=== PATIENT | female | born 1970 | race Caucasian/White ===

== ENCOUNTER 2018-03-23 10:12 | Emergency (ER) | payer OTHER ==
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
--- NOTE | 2018-03-23 11:31 | RADIOLOGY REPORT (SQ) ---
EXAM DESCRIPTION: CT CERVICAL SPINE WITHOUT COMPLETED DATE/TIME: 03/23/2018 10:50 am REASON FOR STUDY: trauma COMPARISON: None. TECHNIQUE: Axial images acquired through the cervical spine without intravenous contrast. Images re viewed with lung, soft tissue and bone windows. Reconstructed coronal and sagittal MPR images review ed. Images stored on PACS. All CT scanners at this facility use dose modulation, iterative reconstruction, and/or weight based d osing when appropriate to reduce radiation dose to as low as reasonably achievable (ALARA). [facility]: Dose Right [facility]: CareDose [facility]: Dose Right [facility]: Teradose 4D [facility]: [employer] RADIATION DOSE: CT Rad equipment meets quality standard of care and radiation dose reduction techniq ues were employed. CTDIvol: 20.6 mGy. DLP: 408 mGy-cm. mGy. LIMITATIONS: None. FINDINGS: ALIGNMENT: Anatomic. MINERALIZATION: Normal. VERTEBRAL BODIES: No fractures or dislocation. DISCS: Multilevel disc space narrowing with osteophytes. FACETS, LATERAL MASSES, POSTERIOR ELEMENTS: Ossification of the posterior longitudinal ligament. Fac et arthropathy. No fractures. No dislocation. No acute findings. HARDWARE: None in the spine. VISUALIZED RIBS: No fractures. LUNG APICES AND SOFT TISSUES: No significant or acute findings. OTHER: No other significant finding. IMPRESSION: CHRONIC DEGENERATIVE CHANGES. NO ACUTE FINDINGS. TECHNICAL DOCUMENTATION: JOB ID: [id number] Quality ID # [id number]: Final reports with documentation of one or more dose reduction techniques (e.g., Au tomated exposure control, adjustment of the mA and/or kV according to patient size, use of iterative reconstruction technique) 2010 [employer]- All Rights Reserved Reading location - IP/workstation name: [email or web address]
[2018-03-23 11:45] VITALS: BP 127/78
== END 2018-03-23 11:51 | disposition home or self-care (01) ==
LOC: ER 10:12
DX: S16.1XXA Strain of muscle, fascia and tendon at neck level, initial encounter (principal); R20.0 Anesthesia of skin; M54.2 Cervicalgia; M54.6 Pain in thoracic spine; M79.641 Pain in right hand; M79.642 Pain in left hand; V87.7XXA Person injured in collision between other specified motor vehicles (traffic), initial encounter; F17.200 Nicotine dependence, unspecified, uncomplicated
CPT/HCPCS: 72125; 99284

== ENCOUNTER → 2018-05-25 | Outpatient (CLI) | payer OTHER ==
--- NOTE | 2018-05-25 09:34 | RADIOLOGY REPORT (SQ) ---
EXAM DESCRIPTION: CHEST PA/LATERAL COMPLETED DATE/TIME: 05/25/2018 9:14 am REASON FOR STUDY: PRE-OP COMPARISON: None. EXAM PARAMETERS: NUMBER OF VIEWS: two views TECHNIQUE: Digital Frontal and Lateral radiographic views of the chest acquired. RADIATION DOSE: NA LIMITATIONS: none FINDINGS: LUNGS AND PLEURA: Minimal linear bandlike airspace disease in the lingula, likely scarring . No fluffy alveolar infiltrates worrisome for acute pulmonary edema or pneumonia. No pleural effusion . No pneumothorax. MEDIASTINUM AND HILAR STRUCTURES: No masses or contour abnormalities. HEART AND VASCULAR STRUCTURES: Heart normal size. No evidence for failure. BONES: No acute findings. HARDWARE: None in the chest. OTHER: No other significant finding. IMPRESSION: Minimal lingular scarring TECHNICAL DOCUMENTATION: JOB ID: [id number] [employer]- All Rights Reserved Reading location - IP/workstation name: [email or web address]
[2018-05-25 09:38] LABS: ABSOLUTE LYMPHOCYTES (AUTO) 1.8 10^3/uL (0.5-4.7); ABSOLUTE MONOCYTES (AUTO) 0.4 10^3/uL (0.1-1.4); ABSOLUTE NEUT (AUTO) 3.7 10^3/uL (1.7-8.2); BASOPHILS % (AUTO) 0.4 % (0-2); EOSINOPHILS % (AUTO) 0.7 % (0-6); HEMATOCRIT 41.9 % (36.0-47.0); HEMOGLOBIN 14.3 g/dL (12.0-15.5); LYMPHOCYTES % (AUTO) 30.4 % (13-45); MEAN CORPUSCULAR HGB CONC 34.2 g/dL (32.0-36.0); MEAN CORPUSCULAR VOLUME 88 fl (80-97); MONOCYTES % (AUTO) 6.1 % (3-13); PLATELET COUNT 297 10^3/uL (150-450); RED BLOOD COUNT 4.78 10^6/uL (3.72-5.28); RED CELL DISTRIBUTION WIDTH 13.2 % (11.5-14.0); SEGMENTED NEUTROPHILS % (AUTO) 62.4 % (42-78); TOTAL CELLS COUNTED % (AUTO) 100 %; WHITE BLOOD COUNT 5.9 10^3/uL (4.0-10.5)
[2018-05-25 10:08] LABS: ANION GAP 8 (5-19); BLOOD UREA NITROGEN 15 mg/dL (7-20); CALCIUM 9.2 mg/dL (8.4-10.2); CARBON DIOXIDE 25 mmol/L (22-30); CHLORIDE 105 mmol/L (98-107); GLUCOSE 105 mg/dL (75-110); POTASSIUM 5.5 mmol/L (3.6-5.0); SODIUM 138.4 mmol/L (137-145)
--- NOTE | 2018-05-25 12:57 | EKG REPORT ---
SEVERITY:- NORMAL ECG - SINUS RHYTHM : Confirmed by: David Lyons MD 25-May-2018 12:56:24
== END ==
LOC: OD 08:20
PROVIDERS: ATTEND Orthopaedic Surgery
DX: Z01.810 Encounter for preprocedural cardiovascular examination (principal); Z01.812 Encounter for preprocedural laboratory examination; Z01.818 Encounter for other preprocedural examination
CPT/HCPCS: 36415; 71046; 80048; 85025; 87070; 93005; 93010

== ENCOUNTER → 2019-10-04 | Outpatient (CLI) | payer OTHER ==
--- NOTE | 2019-10-04 17:09 | RADIOLOGY REPORT (SQ) ---
EXAM DESCRIPTION: KUB IMAGES COMPLETED DATE/TIME: 10/04/2019 4:58 pm REASON FOR STUDY: LOWER ABD PAIN R10.30 LOWER ABDOMINAL PAIN, UNSPECIFIED COMPARISON: None. NUMBER OF VIEWS: One view. TECHNIQUE: Supine radiographic image of the abdomen acquired. LIMITATIONS: None. FINDINGS: BOWEL GAS PATTERN: Normal bowel gas pattern. No dilated loops. CALCIFICATIONS: No suspicious calcifications. SOFT TISSUES: No gross mass or suggestion of organomegaly. HARDWARE: None in the abdomen. BONES: No acute fracture. Small bone island distal right iliac bone. Mild degenerative changes and slight levoconvex scoliosis of the lumbar spine. OTHER: IUD within the midline pelvic region. Multiple calcified phleboliths in the pelvic region. IMPRESSION: 1. NO RADIOGRAPHIC EVIDENCE FOR ACUTE ABDOMINAL DISEASE. TECHNICAL DOCUMENTATION: JOB ID: [id number] 2010 [employer]- All Rights Reserved Reading location - IP/workstation name: [email or web address]
[2019-10-04 17:23] LABS: ABSOLUTE EOSINOPHILS # (AUTO) 0.1 10^3/uL (0.0-0.6); ABSOLUTE LYMPHOCYTES (AUTO) 2.4 10^3/uL (0.5-4.7); ABSOLUTE MONOCYTES (AUTO) 0.4 10^3/uL (0.1-1.4); ABSOLUTE NEUT (AUTO) 5.4 10^3/uL (1.7-8.2); BASOPHILS % (AUTO) 0.2 % (0-2); EOSINOPHILS % (AUTO) 1.4 % (0-6); HEMATOCRIT 40.3 % (36.0-47.0); HEMOGLOBIN 14.1 g/dL (12.0-15.5); MEAN CORPUSCULAR HEMOGLOBIN 30.9 pg (27.0-33.4); MEAN CORPUSCULAR VOLUME 88 fl (80-97); MONOCYTES % (AUTO) 4.9 % (3-13); PLATELET COUNT 260 10^3/uL (150-450); RED BLOOD COUNT 4.56 10^6/uL (3.72-5.28); RED CELL DISTRIBUTION WIDTH 12.6 % (11.5-14.0); SEGMENTED NEUTROPHILS % (AUTO) 64.5 % (42-78); TOTAL CELLS COUNTED % (AUTO) 100 %; WHITE BLOOD COUNT 8.4 10^3/uL (4.0-10.5)
[2019-10-04 17:36] LABS: APPEARANCE,URINE CLEAR; BILIRUBIN,URINE NEGATIVE (NEGATIVE); COLOR,URINE STRAW; GLUCOSE, URINE NEGATIVE (NEGATIVE); KETONES,URINE NEGATIVE (NEGATIVE); LEUKOCYTE ESTERASE,URINE NEGATIVE (NEGATIVE); NITRITE,URINE NEGATIVE (NEGATIVE); PROTEIN,URINE NEGATIVE (NEGATIVE); URINE SPECIFIC GRAVITY 1.005; UROBILINOGEN,URINE NEGATIVE mg/dL (<2.0)
[2019-10-04 17:50] LABS: ALBUMIN 4.2 g/dL (3.5-5.0); ALKALINE PHOSPHATASE 62 U/L (38-126); ANION GAP 6 (5-19); ASPARTATE AMINO TRANSFERASE 25 U/L (14-36); BILIRUBIN,TOTAL 0.4 mg/dL (0.2-1.3); BLOOD UREA NITROGEN 14 mg/dL (7-20); C-REACTIVE PROTEIN 5.6 mg/L (<10.0); CALCIUM 9.2 mg/dL (8.4-10.2); CARBON DIOXIDE 27 mmol/L (22-30); CHLORIDE 104 mmol/L (98-107); GLUCOSE 104 mg/dL (75-110); POTASSIUM 3.9 mmol/L (3.6-5.0); TOTAL PROTEIN 7.1 g/dL (6.3-8.2)
[2019-10-04 17:58] LABS: ERYTHROCYTE SEDIMENTATION RATE 27 mm/hr (0-20)
== END ==
LOC: OD 16:24
PROVIDERS: ATTEND Physician Assistant
DX: R10.30 Lower abdominal pain, unspecified (principal); M54.5 Low back pain; Z80.0 Family history of malignant neoplasm of digestive organs
CPT/HCPCS: 36415; 74018; 80053; 81001; 85025; 85652; 86140; 87086

== ENCOUNTER 2019-10-16 04:56 | Emergency (ER) | payer OTHER ==
--- NOTE | 2019-10-16 06:55 | ER Document Report ---
ED General - General Chief Complaint: Low Back Pain Stated Complaint: EXTREME LOWER BACK PAIN Time Seen by Provider: 10/16/19 06:06 Primary Care Provider: LINDA NELSON PA-C [Primary Care Provider] - Follow up as needed TRAVEL OUTSIDE OF THE [place] 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 She is taken some [id number] stool softener with no improvement. States that she was seen by her primary care provider on the and had x-rays of her lower back, urinalysis, CBC and chemistry profile was told that all results were normal. She is advised take Tylenol only. Symptoms unchanged. No fever. No dysuria. No vaginal discharge. Weight is stable. Patient smokes 1/2 pack cigarettes per day. Her pain is unaffected by movement. 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 Patient advises me that her primary provider has arranged for her to have a colonoscopy done next week. - Related Data Allergies/Adverse Reactions: No Known Allergies Allergy (Verified 03/23/18 10:14) Past Medical History - General Information source: Patient - Social History Smoking Status: Current Every Day Smoker Frequency of alcohol use: Occasional Drug Abuse: None Family History: Reviewed & Not Pertinent Patient has homicidal ideation: No Renal/ Medical History: Denies: Hx Peritoneal Dialysis Past Surgical History: Reports: Hx Section - x2 Review of Systems - Review of Systems Notes: Constitutional: Negative for fever. HENT: Negative for sore throat. Eyes: Negative for visual changes. Cardiovascular: Negative for chest pain. Respiratory: Negative for shortness of breath. Gastrointestinal: As per HPI. Genitourinary: Negative for dysuria. Musculoskeletal: As per HPI. Skin: Negative for rash. Neurological: Negative for headaches, weakness or numbness. 10 point ROS negative except as marked above and in HPI. Physical Exam - Vital signs Vitals: Temp 98 F 10/16/19 05:23 - Notes Notes: GENERAL: Middle-aged female of approximately stated age well-developed well- nourished appearing in no acute distress. SKIN: Good turgor no rashes. HEAD: Normocephalic atraumatic. EYES: PERRLA. EOMI. Conjunctivae and sclerae clear. EARS: CANALS AND TMS CLEAR. NOSE: CLEAR. MOUTH: Moist mucosa. Good dentition. No stridor or edema. No drooling. NECK: Supple. No masses or thyromegaly. No adenopathy. Carotids 2+ without bruits. No JVD. BACK: Symmetrical without tenderness. CHEST: Respirations unlabored. Breath sounds clear and symmetrical. HEART: Regular rhythm. No murmur gallop or rub. ABDOMEN: Soft nontender without masses, organomegaly or rebound. Bowel sounds normally active. No bruits. GENITALIA: Deferred. EXTREMITIES: No edema. No calf tenderness. Cap refill less than 1.5 seconds. Dorsalis pedis and posterior tibial pulses 3+ and symmetrical. NEUROLOGICAL: GCS 15. Alert and oriented x3. Normal gait. Fluent speech. Cranial nerves II through XII intact. Sensorimotor and cerebellar normal. Normal tone. PSYCHIATRIC: Appropriate affect. Course - Re-evaluation Re-evalutation: 10/16/19 07:26 Findings discussed with patient and we have agreed that she will receive a soapsuds enema here and then be discharged with MiraLAX for follow-up as previously arranged. Patient expresses understanding of findings and recommendations and is in agreement. - Vital Signs Vital signs: Temp Pulse Resp BP Pulse Ox 98 F 81 16 134/77 H 97 10/16/19 05:23 10/16/19 06:50 10/16/19 06:50 10/16/19 06:50 10/16/19 06:50 - Diagnostic Test Radiology reviewed: Image reviewed - KUB shows a large amount of retained fecal material. Patient also has an IUD present. Discharge - Discharge Clinical Impression: Constipation Qualifiers: Constipation type: unspecified constipation type Qualified Code(s): K59.00 - Constipation, unspecified Condition: Stable Disposition: HOME, SELF-CARE Additional Instructions: Constipation Constipation is a common problem. It is especially likely as you get older. Constipation is a common cause of abdominal pain, but sometimes causes no symptoms at all. Causes of constipation include certain medications, dehydration, diets, inactivity, and low-fiber intake. Rarely, it can be a symptom of underlying disease. The physician has evaluated you for this. Avoid constipation by eating a diet high in fiber, fruits, and vegetables. Drink plenty of liquids. Get regular exercise. If possible, avoid constipating medicines like narcotic pain medication. Some vitamin tablets can cause constipation. Stool softeners may be needed for difficult cases. An excellent stool softener is Konsyl which is available at [employer], and [employer]. Just add a teaspoon to a glass of pineapple or orange juice daily or twice a day if needed. Laxatives are useful for occasional constipation. You should use them only when necessary. Too-frequent use can make your bowels dependent on them. Some over the counter laxatives available without prescription are: Milk of Magnesia, 1-2 tablespoons twice a day Dulcolax, 5 mg pill or 10 mg suppository. Citrate of Magnesia, 4-5 ounces a day for a day or two For acute constipation, Fleet's Enemas and Dulcolax suppositories are helpful. Chronic, senior living use of laxatives or enemas is not a good idea. Your bowel may become dependant on them. You do not need to have a bowel movement every day. Many people do fine with a bowel movement every three or four days. You should call your doctor or return for re-evaluation if you pass blood in the stool, or if you develop fever or increasing abdominal pain. Follow-up with GI for colonoscopy as previously arranged. Return here as needed for new or worsening symptoms: Pain that is worsening or unimproved Uncontrolled vomiting High fever or shaking chills Overall worsening Prescriptions: Polyethylene Glycol 3350 [Miralax] 1 cap PO DAILY #527 powder Referrals: LINDA NELSON PA-C [Primary Care Provider] - Follow up as needed
--- NOTE | 2019-10-16 07:37 | RADIOLOGY REPORT (SQ) ---
ABDOMINAL RADIOGRAPHS: 10/16/2019 6:35 AM CDT COMPARISON: Abdominal radiograph performed 08/04/2019 TECHNIQUE: Two supine radiographs of the abdomen were obtained. HISTORY: 49 -year old with concern for constipation. FINDINGS: The visualized bowel gas pattern is nonspecific and nonobstructive. No abnormal intraabdominal calcifications are seen. There are no findings to suggest organomegaly. The lung bases were not included on this examination. There is stool projecting at the descending colon. An IUD seen at the lower pelvis. IMPRESSION: The bowel gas pattern is nonobstructive and nonspecific.
[2019-10-16 07:41] LABS: APPEARANCE,URINE CLEAR; BILIRUBIN,URINE NEGATIVE (NEGATIVE); COLOR,URINE YELLOW; GLUCOSE, URINE NEGATIVE (NEGATIVE); KETONES,URINE NEGATIVE (NEGATIVE); PROTEIN,URINE NEGATIVE (NEGATIVE); URINE SPECIFIC GRAVITY 1.018; UROBILINOGEN,URINE NEGATIVE mg/dL (<2.0)
[2019-10-16 09:59] VITALS: BP 114/66
== END 2019-10-16 09:58 | disposition home or self-care (01) ==
LOC: ER 04:56
DX: K59.00 Constipation, unspecified (principal); M54.5 Low back pain; Z97.5 Presence of (intrauterine) contraceptive device; F17.210 Nicotine dependence, cigarettes, uncomplicated
CPT/HCPCS: 74018; 81001; 99283

== ENCOUNTER 2019-10-22 06:23 | Day surgery (SDC) | payer OTHER ==
[2019-10-22] MEDS ORDERED: PROPOFOL INJ 200 MG/20 ML VIAL IV ONE (06:45)
[2019-10-22] MEDS ORDERED: EPINEPHRINE INJ 1 MG/10 ML DISP.SYRIN ONE (07:06)
--- NOTE | 2019-10-22 09:48 | Operative Report ---
Operative Report DATE OF SURGERY: 10/22/19 Operative Report: The risk, benefits and alternatives of the procedure including the risk of bleeding, perforation requiring surgery have been explained to the patient in detail and informed consent has been obtained. The patient is placed in the left, lateral decubital position. Timeout was called. Propofol medication is administered. Rectal examination is done which did not reveal any masses, tears or fissures. Olympus videoscope is inserted into the patient's rectum. Scope was then carefully advanced all the way to the cecum. Cecum was identified by the usual anatomical landmarks including the ileocecal valve as well as the appendiceal office. Photodocumentation is obtained. Scope was then sequentially pulled back via the various segments of the colon including the ascending colon, hepatic flexure, transverse colon, splenic flexure, descending colon and finally into the rectosigmoid portions of the colon. Retroflexion maneuver is performed. PREOPERATIVE DIAGNOSIS: Colorectal cancer screening POSTOPERATIVE DIAGNOSIS: Small shallow nonbleeding ulcer noted in the rectum status post biopsy. Internal hemorrhoids OPERATION: Colonoscopy with biopsy SURGEON: CORINA RAMIREZ ANESTHESIA: LMAC TISSUE REMOVED OR ALTERED: As noted above. COMPLICATIONS: None. ESTIMATED BLOOD LOSS: None. INTRAOPERATIVE FINDINGS: As noted above. PROCEDURE: Patient tolerated the procedure well. No immediate postprocedure complications are noted. Patient is discharged in good condition. Discharge date 10/22/2019. Discharge diet: Regular. Discharge activity: Regular. 2 to 3-week follow-up to discuss findings. Patient is instructed call the office Or proceed to the emergency room should it be any further proximal questions. Wait on the pathology
--- NOTE | 2019-10-22 09:53 | Progress Note ---
Provider Note Provider Note: Addendum : surveillance colonoscopy in 10 years if biopsies are negative
[2019-10-22 10:57] VITALS: BP 117/59
== END 2019-10-22 09:20 | disposition home or self-care (01) ==
LOC: OROUT 06:23
PROVIDERS: ATTEND Internal Medicine Gastroenterology
DX: Z12.11 Encounter for screening for malignant neoplasm of colon (principal); D12.8 Benign neoplasm of rectum; K64.8 Other hemorrhoids; Z03.818 Encounter for observation for suspected exposure to other biological agents ruled out; Z85.038 Personal history of other malignant neoplasm of large intestine; Z80.0 Family history of malignant neoplasm of digestive organs; Z87.891 Personal history of nicotine dependence
CPT/HCPCS: 45380; 87635; 88305 ×2; 00812; J0171; J2704; 812